=== PATIENT | female | born 1970 | race Caucasian/White ===

== ENCOUNTER 2022-07-23 08:57 | Emergency (ER) | payer BC, SELFPAY ==
[2022-07-23 09:00] VITALS: BP 137/87; PULSE 88; RESP 18; TEMP 37.4; O2SAT 97; BMI 32.4
[2022-07-23 09:55] LABS: PCR FLU A Negative PCR FLU A (Negative); PCR FLU B Negative PCR FLU B (Negative); PCR RSV Negative PCR RSV (Negative); SARS PCR* Negative SARS-CoV-2 (Negative)
[2022-07-23 10:20] LABS: Strep A DNA Probe* DETECTED (Not Detectd)
--- NOTE | 2022-07-23 14:27 | ED_ITS ---
HPI - General Adult General Date Seen: 07/23/22 Chief complaint: Cough Stated complaint: Flu-like symptoms Time Seen by Provider: 07/23/22 09:21 Source: patient Mode of arrival: ambulatory Limitations: no limitations History of Present Illness HPI narrative: Patient is a 51-year-old female who presents for evaluation of upper respiratory symptoms. She says she has been sick the past week with what she thought were just regular cold symptoms, but for the past couple of days her throat has gotten much worse and she is feeling short of breath. She does not have chest pain, has not noted wheezing and has minimal cough. She is a smoker but says she has not been smoking the past week due to her cold symptoms. She has not run a fever that she knows of. She has not been around anybody sick, has not done a COVID test at home. Is vaccinated for COVID. Denies other significant health history. Does not have underlying asthma, diabetes, heart disease. Related Data Home Medications Medication Instructions Recorded Confirmed No Known Home Medications 07/23/22 07/23/22 Allergies Allergy/AdvReac Type Severity Reaction Status Date / Time Sulfa (Sulfonamide Allergy Mild Hives Verified 11/01/21 09:02 Antibiotics) mangos Allergy Severe Anaphylaxis Uncoded 07/23/22 09:05 Review of Systems Status of ROS: Reports: 10 or more systems reviewed and unremarkable except as noted in History and below [facility] Social History Smoking Status: Current every day smoker Exam Narrative: Exam Narrative: Vital signs as noted above. In general, an alert, nontoxic woman. Looks fatigued. Head: Normocephalic, atraumatic. Eyes: Pupils are equal reactive. Extraocular movements are full. Conjunctivae are normal. ENT: Mucous membranes are moist. Bilateral tonsils are exudative, no edema. Airway is patent. Neck: Supple without lymphadenopathy. No stridor. Heart: Regular rate and rhythm. No murmur or rub. Lungs: Clear bilaterally. No increased work of breathing, crackles or wheezes. Extremities: Well perfused. Neurologic: Patient is alert and oriented to person and place. Speech is fluent. Face is symmetric. Moves all extremities equally. Affect: Normal. Skin: Warm and dry. Well perfused. Const: Vital Signs, click to edit/add: Vital Signs - 24 hr 07/23/22 09:00 Temperature 99.3 F Pulse Rate [Right Pulse Oximeter] 88 Respiratory Rate 18 Blood Pressure [Ri ght Upper Arm] 137/87 Pulse Oximetry 97 Oxygen Delivery Me thod Room Air Documenting provider has reviewed patient's vital signs: yes Course Course Hospital Course: She clearly has an exudative tonsillitis,, does not have significant cervical adenopathy. We did do a COVID/influenza/RSV test those were all negative. A strep was positive. Low likelihood of Ebstein Patrick. Her lungs are clear, her O2 sats are normal, I do not think chest imaging is necessary today. Likelihood of pneumonia is low and I am going to be treating her with antibiotics for the strep throat. She is nontoxic in appearance. Discussed return for worsening pain, otherwise expect improvement in the throat with antibiotics over the next day or 2. Did discuss that some of her symptoms are likely viral and may take longer to improve. If no improvement over the next 7-10 days, follow up with primary care. Vital Signs Vital signs: Initial Vital Signs Temperature 99.3 F 07/23/22 09:00 Temperature Source Temporal Artery Scan 07/23/22 09:00 Pulse Rate 88 07/23/22 09:00 Respiratory Rate 18 07/23/22 09:00 Blood Pressure 137/87 07/23/22 09:00 Blood Pressure Mean 103 07/23/22 09:00 Blood Pressure Position Sitting 07/23/22 09:00 Pulse Oximetry 97 07/23/22 09:00 Oxygen Delivery Method 07/23/22 09:00 Vital Signs Temperature 99.3 F 07/23/22 09:00 Pulse Rate 88 07/23/22 09:00 Respiratory Rate 18 07/23/22 09:00 Blood Pressure 137/87 07/23/22 09:00 Pulse Oximetry 97 07/23/22 09:00 Oxygen Delivery Method 07/23/22 09:00 Temperature 99.3 F 07/23/22 09:00 Pulse Rate 88 07/23/22 09:00 Respiratory Rate 18 07/23/22 09:00 Blood Pressure 137/87 07/23/22 09:00 Pulse Oximetry 97 07/23/22 09:00 Oxygen Delivery Method 07/23/22 09:00 Medical Decision Making Lab Data Labs: Lab Results 07/23/22 07/23/22 Range/Units 09:02 09:30 SARS-CoV-2 (PCR) Negative SARS-CoV-2 (Negative) Influenza Type A (PCR) Negative PCR FLU A (Negative) Influenza Type B (PCR) Negative PCR FLU B (Negative) RSV (PCR) Negative PCR RSV (Negative) Group A Strep DNA DETECTED A (Not Detectd) Discharge Plan Discharge Clinical Impression: Strep throat Patient Disposition: Home, Self-Care Condition: Stable Instructions: Strep Throat (DC) Additional Instructions: Antibiotic as prescribed. Ibuprofen or Tylenol as needed for sore throat. Return for worsening, otherwise expect improvement over the next 48 hours or so. Prescriptions: No Action No Known Home Medications Follow Up/Referrals: Provider,Not a Local [Primary Care Provider] - Stand Alone Forms: [employer] Info Instructions
== END 2022-07-23 10:46 | disposition home or self-care (01) ==
PROVIDERS: Emergency Provider Emergency Medicine
DX: J02.0 Streptococcal pharyngitis (principal)
CPT/HCPCS: 87502; 87634; 87635; 87651; 99283

== ENCOUNTER 2023-02-25 08:50 | Emergency (ER) | payer BC, SELFPAY ==
[2023-02-25 09:00] VITALS: BP 172/90; PULSE 63; RESP 18; TEMP 36.4; O2SAT 99; BMI 33.9
--- NOTE | 2023-02-25 11:13 | ED.HEATRA ---
HPI - Head Injury General Chief complaint: Head Injury/Pain Stated complaint: Hit on head yesterday, headache Time Seen by Provider: 02/25/23 10:57 History of Present Illness HPI Narrative: This 52-year-old female comes in for evaluation of an injury that occurred yesterday. She was working with her boyfriend to take down a large tree. She states that the stump was on a battery loader and rolled off of it and hit her in the head and in her left side. She did not have loss of consciousness. She did not have significant symptoms initially but now overnight reports increased headache, nausea, and generalized aches and pains. She does not report any neurologic deficit. She has had some nausea as I said but no vomiting. She does not have any altered level of consciousness. She states that this is not the worst headache that she has ever head. Related Data Previous Rx's Medication Instructions Recorded cyclobenzaprine 10 mg tablet 10 mg PO TID #15 tabs 02/25/23 ketorolac 10 mg tablet 10 mg PO Q8H 5 days #15 tabs 02/25/23 ondansetron HCl 4 mg tablet 4 mg PO Q6H #10 tabs 02/25/23 Allergies Allergy/AdvReac Type Severity Reaction Status Date / Time Sulfa (Sulfonamide Allergy Mild Hives Verified 11/01/21 09:02 Antibiotics) mangos Allergy Severe Anaphylaxis Uncoded 07/23/22 09:05 Review of Systems Status of ROS: Reports: 10 or more systems reviewed and unremarkable except as noted in History and below Narrative: Constitutional: No fevers, no weight gain or loss. Eyes: No discharge. No vision changes. HENT: No congestion, no sore throat, no ear pain. She reports a headache. Cardiovascular: No chest pain, no palpitations. Respiratory: No shortness of breath, no wheezes, no cough. Gastrointestinal: No abdominal pain, no vomiting, no diarrhea. She has some nausea. Genitourinary: No dysuria, no hematuria. Musculoskeletal: Normal range of motion. Skin: No rashes, no pruritis. Neurological: No dizziness, weakness, sensory change, speech change. Endo/Heme/Allergies: No bruising or bleeding. No polydipsia. Pysch: no suicidality, no anxiety, no insomnia. All other systems reviewed and are negative. PFSH PFSH Social History Smoking Status: Current every day smoker Exam Narrative: Exam Narrative: Constitutional: Well-developed, well-nourished, no acute distress. HEENT: Normocephalic, atraumatic. She reports some tenderness in the left upper portion of her scalp but there is no sign of swelling or skin injury in this area. Neck: Normal range of motion. Nontender. Supple. Heart: Regular. No murmurs. Normal rate. Intact distal pulses. Lungs: Clear to auscultation. No chest discomfort. No wheezes, rhonchi, or rales. Abdomen: Normal bowel sounds. Nontender. No rebound tenderness. Genitalia: Deferred. Back: No midline tenderness. Normal range of motion. Extremities: Normal range of motion. No injury. Skin: Intact. No rash. Warm. No erythema or pallor. Neurologic: No altered sensation. No weakness. Alert and oriented. Psychiatric: No suicidality. No anxiety or depression. No insomnia. Nursing notes and vitals signs are reviewed. Const: Vital Signs, click to edit/add: Vital Signs - 24 hr 02/25/23 09:00 Temperature 97.6 F Pulse Rate [Right Pulse Oximeter] 63 Respiratory Rate 18 Blood Pressure [Ri ght Upper Arm] 172/90 H Pulse Oximetry 99 Oxygen Delivery Me thod Room Air Course Vital Signs Vital signs: Initial Vital Signs Temperature 97.6 F 02/25/23 09:00 Temperature Source Temporal Artery Scan 02/25/23 09:00 Pulse Rate 63 02/25/23 09:00 Respiratory Rate 18 02/25/23 09:00 Blood Pressure 172/90 H 02/25/23 09:00 Blood Pressure Mean 117 H 02/25/23 09:00 Blood Pressure Position Sitting 02/25/23 09:00 Pulse Oximetry 99 02/25/23 09:00 Oxygen Delivery Method Room Air 02/25/23 09:00 Vital Signs Temperature 97.6 F 02/25/23 09:00 Pulse Rate 63 02/25/23 09:00 Respiratory Rate 18 02/25/23 09:00 Blood Pressure 172/90 H 02/25/23 09:00 Pulse Oximetry 99 02/25/23 09:00 Oxygen Delivery Method Room Air 02/25/23 09:00 Temperature 97.6 F 02/25/23 09:00 Pulse Rate 63 02/25/23 09:00 Respiratory Rate 18 02/25/23 09:00 Blood Pressure 172/90 H 02/25/23 09:00 Pulse Oximetry 99 02/25/23 09:00 Oxygen Delivery Method Room Air 02/25/23 09:00 MDM - Head Injury MDM Narrative Medical decision making narrative: This patient comes in because of some increased symptoms after an injury that occurred yesterday as described above. She did not have loss of consciousness. Her main symptoms are some generalized aches and pains with some nausea symptoms. She has not had any vomiting. She does not show any sign of neurologic deficit or altered level of consciousness. Her GCS is 15. I did describe the role of CT imaging and in a process of shared decision-making she declined this study. She is sufficiently reassured. She did received prescriptions for Toradol, Flexeril, and Zofran. Her symptoms are suspicious for a concussion without loss of consciousness. I did have discussion regarding this diagnosis and its prognosis and guidelines for return to activity. Discharge Plan Discharge Clinical Impression: Concussion without loss of consciousness Patient Disposition: Home, Self-Care Condition: Stable Additional Instructions: Take medication as needed and directed. Increase activity as tolerated. Follow up with MD return if worsening. Prescriptions: New cyclobenzaprine 10 mg tablet 10 mg PO TID Qty: 15 0RF ondansetron HCl 4 mg tablet 4 mg PO Q6H Qty: 10 0RF ketorolac 10 mg tablet 10 mg PO Q8H 5 Days Qty: 15 0RF Follow Up/Referrals: Provider,Not a Local [Primary Care Provider] - Stand Alone Forms: [facility] Info Instructions
== END 2023-02-25 11:43 | disposition home or self-care (01) ==
LOC: ED 11:27
PROVIDERS: Emergency Provider Emergency Medicine Emergency Medical Services
DX: S06.0X0A Concussion without loss of consciousness, initial encounter (principal); W22.8XXA Striking against or struck by other objects, initial encounter
CPT/HCPCS: 99283; 99284